=== PATIENT | female | born 1970 | race Native Hawaiian/Other Pacific Islander ===

== ENCOUNTER 2017-05-11 20:31 | Emergency (ER) | payer OTHER ==
[~2017-05-11] VITALS: Ht 162.6 cm; Wt 152.4 kg
[~2017-05-11 20:31] MED LIST: CRESTOR5 MG PO; GABA300C2 PO; HYDR50CA21 PO; LISINOP/HCTZ1 TA2 PO; METF500T PO; TIZA4TAB5 PO; XANAX XR1 MG OR
[2017-05-11 21:17] LABS: PLATELET COUNT 347 K/uL (152-353)
[2017-05-11 21:22] LABS: POTASSIUM 3.7 mmol/L (3.6-5.2)
[2017-05-12 00:20] VITALS: BP 161/67; TEMP 98.4
== END 2017-05-12 00:21 | disposition home or self-care (01) ==
LOC: ED 20:31
DX: R10.84 Generalized abdominal pain (principal); K76.0 Fatty (change of) liver, not elsewhere classified
CPT/HCPCS: 36415; 80053; 81000; 81025; 82150; 83690; 85027; 86318; 99283; J2405; Q9963

== ENCOUNTER 2017-08-11 15:02 | Emergency (ER) | payer OTHER ==
[~2017-08-11] VITALS: Ht 162.6 cm; Wt 149.7 kg
[2017-08-11 15:20] VITALS: BP 154/78; TEMP 97.9
== END 2017-08-11 15:47 | disposition home or self-care (01) ==
LOC: ED 15:02
DX: M25.551 Pain in right hip (principal)
CPT/HCPCS: 99281